=== PATIENT | female | born 1940 | race Caucasian/White ===

== ENCOUNTER 2017-06-03 14:03 | Inpatient (IN) | payer OTHER, BC ==
[~2017-06-03] VITALS: Ht 160 cm; Wt 101.6 kg
[2017-06-03 14:20] VITALS: BP 140/73
[2017-06-03 14:23] LABS: ABSOLUTE NEUTROPHILS 12.6 thou/uL (1.4-8.2); BASOPHILS 1.2 % (0.0-2.0); EOSINOPHILS 3.3 % (0.0-3.0); HEMATOCRIT 46.6 % (37.0-47.0); HEMOGLOBIN 15.6 gm/dL (12.0-15.0); LYMPHOCYTES 18.3 % (24.0-44.0); MCH 31.9 pg (26.0-34.0); MCHC 33.6 g/dL (28.0-37.0); MCV 95.1 fL (80.0-100.0); MONOCYTES 5.7 % (1.0-8.0); PLATELET COUNT 245 thou/uL (150-400); POLYS 71.5 % (36.0-66.0); RBC 4.89 mil/uL (4.20-5.00); RDW 14.1 % (10.5-14.5); WBC 17.6 thou/uL (4.0-11.0)
[2017-06-03 14:24] LABS: MANUAL DIFF NO
[2017-06-03 14:31] LABS: CALCIUM 9.4 mg/dL (8.5-10.1); CREATININE 0.9 mg/dL (0.6-1.0); POTASSIUM 3.7 mmol/L (3.5-5.1)
[2017-06-03] MEDS ORDERED: ZETIA10 MG PO (15:05)
[2017-06-03] MEDS ORDERED: UNICOMPLEX M TA1 TA1 PO (15:06)
[2017-06-03] MEDS ORDERED: CALCIUM 600 +1 EAC1 PO (15:06)
[2017-06-03] MEDS ORDERED: FOLBIC RF TABL1 EACH PO (15:07)
[2017-06-03] MEDS ORDERED: VITAMIN D1000 UNI1 PO (15:07)
[2017-06-03] MEDS ORDERED: METOPROLOL SUC200 MG PO (15:08)
[2017-06-03] MEDS ORDERED: NEURONTIN 300300 M1 PO (15:09)
[2017-06-03] MEDS ORDERED: LOSARTAN-HCTZ1 EAC2 PO (15:09)
[2017-06-03] MEDS ORDERED: NORVASC5 MG PO (15:09)
[2017-06-03 16:11] VITALS: BP 129/69
[2017-06-03 16:48] VITALS: BP 129/69
[2017-06-03 16:58] VITALS: BP 128/71
[2017-06-03 17:35] VITALS: BP 131/73
[2017-06-03 19:30] VITALS: BP 141/68
[2017-06-04 00:10] VITALS: BP 107/65
[2017-06-04 03:50] VITALS: BP 106/57
[2017-06-04 06:24] LABS: HEMATOCRIT 40.2 % (37.0-47.0); HEMOGLOBIN 13.6 gm/dL (12.0-15.0); MCH 32.1 pg (26.0-34.0); MCHC 33.7 g/dL (28.0-37.0); MCV 95.1 fL (80.0-100.0); RBC 4.23 mil/uL (4.20-5.00); RDW 14.2 % (10.5-14.5)
[2017-06-04 07:43] VITALS: BP 123/66
[2017-06-04 17:51] VITALS: BP 120/56
[2017-06-04 19:55] VITALS: BP 115/52
[2017-06-05 03:55] VITALS: BP 114/64
[2017-06-05 08:00] VITALS: BP 115/59
[2017-06-05] MEDS ORDERED: PREDNISONE 10 M10 MG PO (09:15)
[2017-06-05] MEDS ORDERED: CEFDINIR300 MG PO (09:15)
[2017-06-05 09:39] VITALS: BP 115/59
== END 2017-06-05 11:13 | disposition home or self-care (01) | DRG 871 ==
LOC: ER 14:03 → 4S 15:53 → EROBS 15:53 → 4S 16:45
PROVIDERS: Emergency Medicine; Hospitalist
DX: A41.9 Sepsis, unspecified organism (principal); J18.9 Pneumonia, unspecified organism; J96.01 Acute respiratory failure with hypoxia; J45.901 Unspecified asthma with (acute) exacerbation; I10 Essential (primary) hypertension; E78.00 Pure hypercholesterolemia, unspecified; J40 Bronchitis, not specified as acute or chronic; Z88.0 Allergy status to penicillin
CPT/HCPCS: 10100